=== PATIENT | male | born 1930 | race African-American/Black ===

== ENCOUNTER 2016-11-03 12:54 | Inpatient (IN) | payer MEDICARE, OTHER ==
[2016-11-02 20:45] VITALS: BP 121/75
[~2016-11-03] VITALS: Ht 177.8 cm; Wt 88.5 kg
[2016-11-03] MEDS ORDERED: MORPHINE SULFATE 4 MG/ML CPJ (NOT FOR IM USE) IV STA (14:46)
[2016-11-03] MEDS ORDERED: SODIUM CHLORIDE 0.9% 500 ML IV ONE (14:46)
[2016-11-03] MEDS ORDERED: ONDANSETRON HCL 4MG/2ML VIAL IV STA (14:46)
[2016-11-03 15:08] LABS: HEMATOCRIT. 35.9 % (42.0-52.0); HEMOGLOBIN. 11.9 g/dL (14.0-18.0); MEAN CORPUSCULAR HEMOGLOBIN 31.9 pg (28.0-32.0); MEAN CORPUSCULAR HGB CONC 33.2 g/dL (31.0-37.0); MEAN CORPUSCULAR VOLUME 96.3 fL (80.0-94.0); MEAN PLATELET VOLUME 8.4 fl (7.4-10.4); PLATELET 138 x1000/uL (130-400); RED BLOOD CELL COUNT 3.73 mill/uL (4.7-6.1); RED CELL DISTRIBUTION WIDTH 16.6 % (11.6-14.6); WHITE BLOOD COUNT 8.9 x1000/uL (4.5-11.0)
[2016-11-03 15:09] LABS: DIFFERENTIAL COMMENT 1
[2016-11-03 15:16] LABS: INR 1.1; PARTIAL THROMBOPLASTIN TIME 36.6 sec (24.0-34.0); PROTHROMBIN TIME 11.5 sec
[2016-11-03 15:24] LABS: ALANINE AMINOTRANSFERASE 26 IU/L (13-61); ALBUMIN 3.5 g/dL (3.4-5.0); ANION GAP 13; CALCIUM 9.6 mg/dL (8.5-10.1); CARBON DIOXIDE 29 mEq/L (21-32); CHLORIDE 102 mEq/L (98-107); CREATINE KINASE 125 IU/L (39-308); CREATINE KINASE MB FRACTION 2.8 ng/mL (0.5-3.6); INDEX HEMOLYSI 1 (1-3); INDEX ICTERIC 1 (1-4); INDEX LIPEMIC 1 (1-3); LIPASE 252 IU/L (73-393); TROPONIN I 0.03 ng/mL (0.00-0.04); UREA NITROGEN BLOOD 17 mg/dL (7-21); eGFR > 60 mL/min (>60)
[2016-11-03 15:39] LABS: PLATELET ESTIMATE NORMAL
[2016-11-03 17:18] LABS: CLARITY URINE CLEAR (CLEAR); COLOR URINE YELLOW (YELLOW); GLUCOSE URINE NEGATIVE (NEGATIVE); KETONES URINE NEGATIVE (NEGATIVE); LEUKOCYTE ESTERASE URINE NEGATIVE (NEGATIVE); NITRITE URINE NEGATIVE (NEGATIVE); OCCULT BLOOD URINE 2+ (NEGATIVE); PH URINE 5.5 (4.5-8.0); PROTEIN URINE 3+ (NEGATIVE); SPECIFIC GRAVITY URINE 1.014 (1.005-1.030); UROBILINOGEN URINE 0.2 E.U./dL (0.2-1.0)
[2016-11-03 17:20] LABS: BACTERIA URINE NONE SEEN; CALCIUM PHOSPHATE CRYSTALS UR NONE SEEN /lpf; SQUAMOUS EPITHELIAL CELL URINE NONE SEEN /lpf (RARE/1+); WAXY CASTS URINE NONE SEEN /lpf; WBC URINE NONE SEEN /hpf (0-2); YEAST URINE NONE SEEN
[2016-11-03] MEDS ORDERED: ONDANSETRON HCL 4MG/2ML VIAL IV ONE (18:45)
[2016-11-03] MEDS ORDERED: MORPHINE SULFATE 4 MG/ML CPJ (NOT FOR IM USE) IV ONE (18:45)
[2016-11-03 20:45] VITALS: BP 121/75
[2016-11-03] MEDS ORDERED: HYDROMORPHONE HCL/PF 2MG/ML CPJ IV PRN ×2 (22:31→23:30)
[2016-11-03] MEDS ORDERED: ONDANSETRON HCL 4MG/2ML VIAL IV PRN (23:30)
[2016-11-04] VITALS: BP 108/77
[2016-11-04] MEDS ORDERED: ATOR40TA70 PO (01:51)
[2016-11-04] MEDS ORDERED: TAMS-11 PO (01:51)
[2016-11-04] MEDS ORDERED: AMLO10TA80 PO (01:51)
[2016-11-04] MEDS ORDERED: CHOL20004 PO (01:51)
[2016-11-04] MEDS ORDERED: ASPI-1035 PO (01:51)
[2016-11-04] MEDS ORDERED: MVI, ADULT NO.1 10 ML in DEXT 5%/0.45% NACL 1000ML 1,000 ML IV SCH ×2 (02:00)
[2016-11-04 04:00] VITALS: BP 101/88
[2016-11-04 06:26] LABS: HEMATOCRIT. 30.5 % (42.0-52.0); MEAN CORPUSCULAR HEMOGLOBIN 31.5 pg (28.0-32.0); MEAN CORPUSCULAR HGB CONC 32.8 g/dL (31.0-37.0); MEAN CORPUSCULAR VOLUME 96.1 fL (80.0-94.0); MEAN PLATELET VOLUME 9.2 fl (7.4-10.4); PLATELET 125 x1000/uL (130-400); RED BLOOD CELL COUNT 3.18 mill/uL (4.7-6.1); RED CELL DISTRIBUTION WIDTH 16.4 % (11.6-14.6); WHITE BLOOD COUNT 15.5 x1000/uL (4.5-11.0)
[2016-11-04 07:16] VITALS: BP 120/66
[2016-11-04 08:00] VITALS: BP 107/76
[2016-11-04 08:03] LABS: DIFFERENTIAL COMMENT 1
[2016-11-04 08:18] LABS: ALBUMIN 2.9 g/dL (3.4-5.0); ANION GAP 15; CALCIUM 8.9 mg/dL (8.5-10.1); CARBON DIOXIDE 26 mEq/L (21-32); CHLORIDE 102 mEq/L (98-107); INDEX HEMOLYSI 1 (1-3); INDEX ICTERIC 1 (1-4); INDEX LIPEMIC 1 (1-3); PHOSPHORUS 3.8 mg/dL (2.5-4.9); UREA NITROGEN BLOOD 20 mg/dL (7-21); eGFR > 60 mL/min (>60)
[2016-11-04] MEDS ORDERED: PANTOPRAZOLE SODIUM 40 MG/VIAL IV SCH (09:00)
[2016-11-04 12:00] VITALS: BP 94/70
[2016-11-04] MEDS ORDERED: SODIUM BICARBONATE 7.5% 0.9 MEQ/ML 50ML SYR IV ONE ×2 (14:30)
[2016-11-04] MEDS ORDERED: ATROPINE SULFATE 1MG/10ML SYR ONE ×2 (14:30)
[2016-11-04] MEDS ORDERED: DOPAMINE 400MG IN DEXT 5% 250ML PREMIX IV ONE (14:30)
[2016-11-04] MEDS ORDERED: EPINEPHRINE 0.1MG/ML (1:10,000) 10ML SYR ONE ×4 (14:30→15:36)
[2016-11-04] MEDS ORDERED: CALCIUM CHLORIDE 1GM/10ML SYR IV ONE ×2 (14:30→16:19)
[2016-11-04] MEDS ORDERED: LIDOCAINE HCL 2% 5ML SYRINGE IV ONE (14:30)
[2016-11-04] MEDS ORDERED: DOPAMINE 400MG PREMIX 250 ML IV PRN (15:15)
[2016-11-04] MEDS ORDERED: NOREPINEPHRINE 8 MG in DEXT 5% WATER 242 ML IV PRN (15:45)
[2016-11-04 17:49] LABS: PLATELET ESTIMATE SLIGHTLY DECREASED
[2016-11-04 17:50] LABS: ANISOCYTOSIS 1+
== END 2016-11-04 16:27 | disposition expired | DRG 392 ==
LOC: ER 13:09 → 8WST 16:01 → MICUSO 11-04 14:58
PROVIDERS: ADMIT Internal Medicine; ATTEND Internal Medicine
PROC: 5A12012 Performance of Cardiac Output, Single, Manual (ICD-10-PCS; principal; 2016-11-04)
DX: R10.9 Unspecified abdominal pain (principal); N20.0 Calculus of kidney; M19.90 Unspecified osteoarthritis, unspecified site; H91.90 Unspecified hearing loss, unspecified ear; I10 Essential (primary) hypertension; H40.9 Unspecified glaucoma; E78.5 Hyperlipidemia, unspecified; Z86.79 Personal history of other diseases of the circulatory system
CPT/HCPCS: 31500; 36415; 71010; 74000; 74176; 80053; 80069; 81001; 82550; 82553; 82962; 83690; 83735; 84100; 84484; 84550; 85025; 85610; 85651; 85730; 92950; 93005; 94002; 96374; 96375; 96376; 99285; C9113; J0171; J0461; J1170; J1265; J2270; J2405; J3490; J7030; J7040